=== PATIENT | female | born 1980 | race Caucasian/White ===

== ENCOUNTER 2017-09-05 06:10 | Emergency (ER) | payer BC ==
[~2017-09-05] VITALS: Ht 162.6 cm; Wt 57.1 kg
[2017-09-05 06:41] VITALS: Ht 162.6 cm; Wt 57.1 kg
[2017-09-05 09:04] VITALS: BP 106/66
== END 2017-09-05 09:58 | disposition home or self-care (01) ==
LOC: ED 06:10
DX: S40.011A Contusion of right shoulder, initial encounter (principal); M54.2 Cervicalgia; V49.9XXA Car occupant (driver) (passenger) injured in unspecified traffic accident, initial encounter; Y93.89 Activity, other specified; Y92.89 Other specified places as the place of occurrence of the external cause; Y99.8 Other external cause status; Z88.5 Allergy status to narcotic agent

== ENCOUNTER 2017-10-01 18:00 | Emergency (ER) | payer BC ==
[~2017-10-01] VITALS: Ht 162.6 cm; Wt 52.2 kg
[2017-10-01 19:18] VITALS: Ht 162.6 cm; Wt 52.2 kg
[2017-10-01 21:25] VITALS: BP 101/64
== END 2017-10-01 21:25 | disposition home or self-care (01) ==
LOC: ED 18:00
DX: S80.02XA Contusion of left knee, initial encounter (principal); S60.512A Abrasion of left hand, initial encounter; G43.909 Migraine, unspecified, not intractable, without status migrainosus; G80.9 Cerebral palsy, unspecified; Z88.8 Allergy status to other drugs, medicaments and biological substances; W22.8XXA Striking against or struck by other objects, initial encounter; Y93.89 Activity, other specified; Y99.8 Other external cause status; Y92.89 Other specified places as the place of occurrence of the external cause
CPT/HCPCS: J1885; Q0092; Q0162

== ENCOUNTER 2018-04-11 20:13 | Emergency (ER) | payer BC ==
[~2018-04-11] VITALS: Ht 162.6 cm; Wt 58.1 kg
[2018-04-11 20:29] VITALS: Ht 162.6 cm; Wt 58.1 kg
[2018-04-11 22:08] VITALS: BP 107/59
== END 2018-04-11 22:08 | disposition home or self-care (01) ==
LOC: ED 20:13
DX: J04.0 Acute laryngitis (principal); G43.909 Migraine, unspecified, not intractable, without status migrainosus

== ENCOUNTER 2018-06-20 16:58 | Emergency (ER) | payer BC ==
[~2018-06-20] VITALS: Ht 162.6 cm; Wt 56.7 kg
[2018-06-20 17:02] VITALS: Ht 162.6 cm; Wt 56.7 kg
[2018-06-20 17:33] LABS: CALCIUM 8.3 mg/dL (8.5-10.1); CARBON DIOXIDE 28.4 mmol/L (21-32); CHLORIDE SERUM 105 mmol/L (98-107); CREATININE SERUM 0.8 mg/dL (0.6-1.0); GFR1 > 60 mL/min; GLUCOSE SERUM 111 mg/dL (74-106); POTASSIUM SERUM 3.5 mmol/L (3.5-5.1); SODIUM SERUM 140 mmol/L (136-145)
[2018-06-20 17:37] LABS: ALBUMIN 3.7 g/dL (3.4-5.0); ALKALINE PHOSPHATASE 75 U/L (46-116); ALT/SGPT 23 U/L (14-59); AST/SGOT 14 U/L (15-37); BILIRUBIN TOTAL 0.8 mg/dL (0.20-1.00); TOTAL PROTEIN, SERUM 7.3 g/dL (6.4-8.2)
[2018-06-20 17:39] LABS: BASOPHIL % 0.7 % (0-2); PLATELET COUNT 248 x10^3mcL (130-400); RED CELL DISTRIBUTION WIDTH 14.1 % (11.5-14.5)
[2018-06-20 20:40] VITALS: BP 100/57
== END 2018-06-20 20:40 | disposition home or self-care (01) ==
LOC: ED 16:58
PROVIDERS: Emergency Medicine
DX: N94.6 Dysmenorrhea, unspecified (principal); N93.9 Abnormal uterine and vaginal bleeding, unspecified; G43.909 Migraine, unspecified, not intractable, without status migrainosus; Z88.5 Allergy status to narcotic agent; Z86.69 Personal history of other diseases of the nervous system and sense organs
CPT/HCPCS: 36415; Q0092

== ENCOUNTER 2018-08-02 01:34 | Inpatient (IN) | payer BC ==
[~2018-08-02] VITALS: Ht 162.6 cm; Wt 53.8 kg
[2018-08-02 01:44] VITALS: Ht 162.6 cm; Wt 53.8 kg
[2018-08-02 02:38] LABS: BASOPHIL % 0.2 % (0-2); PLATELET COUNT 195 x10^3mcL (130-400); RED CELL DISTRIBUTION WIDTH 13.8 % (11.5-14.5)
[2018-08-02 03:16] LABS: CALCIUM 8.1 mg/dL (8.5-10.1); CARBON DIOXIDE 29.4 mmol/L (21-32); CHLORIDE SERUM 108 mmol/L (98-107); CREATININE SERUM 0.7 mg/dL (0.6-1.0); GFR1 > 60 mL/min; GLUCOSE SERUM 97 mg/dL (74-106); POTASSIUM SERUM 4.9 mmol/L (3.5-5.1); SODIUM SERUM 143 mmol/L (136-145)
[2018-08-02 03:19] LABS: ALBUMIN 3.5 g/dL (3.4-5.0); ALKALINE PHOSPHATASE 60 U/L (46-116); ALT/SGPT 35 U/L (14-59); AST/SGOT 22 U/L (15-37); BILIRUBIN TOTAL 0.66 mg/dL (0.20-1.00); LIPASE 173 IU/L (73-393)
[2018-08-02 08:35] VITALS: BP 99/46
[2018-08-02 08:38] LABS: T3 TOTAL 0.87 ng/mL
[2018-08-02 08:55] LABS: AMPHETAMINE QUAL UR NONE DETECTED (See below)
[2018-08-02 09:18] LABS: CHOLESTEROL/HDL RATIO 2.9; PHOSPHOROUS 3.3 mg/dL (2.5-4.9)
[2018-08-02 09:23] LABS: microscopic required? YES; urine erythrocyte TRACE (NEGATIVE)
[2018-08-02 10:20] LABS: FREE T4 0.98 ng/dL (0.76-1.46); FREE THYROXINE INDEX 2.5 ug/dL (1.4-4.5); T4(THYROXINE) 7.1 ug/dL (4.7-13.3)
[2018-08-02 12:20] VITALS: BP 103/56
[2018-08-02 20:35] VITALS: BP 128/79
[2018-08-03 05:36] VITALS: BP 110/56
[2018-08-03 07:01] LABS: PLATELET COUNT 119 x10^3mcL (130-400)
[2018-08-03 07:20] LABS: CARBON DIOXIDE 22.6 mmol/L (21-32); CHLORIDE SERUM 111 mmol/L (98-107); CREATININE SERUM 0.7 mg/dL (0.6-1.0); GFR1 > 60 mL/min; GLUCOSE SERUM 86 mg/dL (74-106); MAGNESIUM 1.8 mg/dL (1.8-2.4); PHOSPHOROUS 2.2 mg/dL (2.5-4.9); POTASSIUM SERUM 3.7 mmol/L (3.5-5.1); SODIUM SERUM 140 mmol/L (136-145)
[2018-08-03 09:01] VITALS: BP 107/65
[2018-08-03 10:23] LABS: PLATELET COUNT 136 x10^3mcL (130-400); RED CELL DISTRIBUTION WIDTH 13.9 % (11.5-14.5)
[2018-08-03 14:36] LABS: BAND NEUTROPHIL 4 % (0-10); SEGMENTED NEUTROPHILS 53 % (37-75)
[2018-08-03 14:37] LABS: MONOCYTE 12 % (0-7); PLATELET MORPHOLOGY PLATELETS DECREASED; rbc morphology (normal/abnorm) ABNORMAL (NORMAL)
[2018-08-03 15:24] LABS: BAND NEUTROPHIL 2 % (0-10); MONOCYTE 8 % (0-7); SEGMENTED NEUTROPHILS 56 % (37-75); rbc morphology (normal/abnorm) ABNORMAL (NORMAL)
[2018-08-03 17:33] VITALS: BP 102/69
[2018-08-03 21:29] VITALS: BP 106/59
[2018-08-04 05:27] VITALS: BP 120/82
[2018-08-04 06:49] LABS: BASOPHIL % 0.4 % (0-2); PLATELET COUNT 143 x10^3mcL (130-400); RED CELL DISTRIBUTION WIDTH 14.2 % (11.5-14.5)
[2018-08-04 07:07] LABS: CARBON DIOXIDE 24.5 mmol/L (21-32); CHLORIDE SERUM 110 mmol/L (98-107); CREATININE SERUM 0.7 mg/dL (0.6-1.0); GFR1 > 60 mL/min; GLUCOSE SERUM 85 mg/dL (74-106); MAGNESIUM 2.1 mg/dL (1.8-2.4); PHOSPHOROUS 2.9 mg/dL (2.5-4.9); POTASSIUM SERUM 4.1 mmol/L (3.5-5.1); SODIUM SERUM 142 mmol/L (136-145)
[2018-08-04 09:53] VITALS: BP 131/74
[2018-08-04 14:08] VITALS: BP 117/69
[2018-08-04 16:22] VITALS: BP 117/69
== END 2018-08-04 17:16 | disposition home or self-care (01) | DRG 391 ==
LOC: ED 01:34 → MU 06:41 → DU 06:41 → MU 16:14
PROVIDERS: Emergency Medicine; General Practice
DX: A08.4 Viral intestinal infection, unspecified (principal); N17.0 Acute kidney failure with tubular necrosis; E86.0 Dehydration; G43.909 Migraine, unspecified, not intractable, without status migrainosus; E87.8 Other disorders of electrolyte and fluid balance, not elsewhere classified; E83.51 Hypocalcemia; B35.1 Tinea unguium; G83.9 Paralytic syndrome, unspecified; Z88.8 Allergy status to other drugs, medicaments and biological substances
CPT/HCPCS: 83880; 84439; 87046; 87046-59; J1885; J2405; J3010; J7030; Q0092

== ENCOUNTER 2020-08-17 20:24 | Emergency (ER) | payer BC, SELFPAY ==
[~2020-08-17] VITALS: Ht 162.6 cm; Wt 63.5 kg
[2020-08-17 20:28] VITALS: Ht 162.6 cm; Wt 63.5 kg
[2020-08-17 21:27] VITALS: BP 122/76
== END 2020-08-17 21:27 | disposition home or self-care (01) ==
LOC: ED 20:24
DX: U07.1 COVID-19 (principal); B34.9 Viral infection, unspecified; Z88.5 Allergy status to narcotic agent
CPT/HCPCS: U0003